=== PATIENT | female | born 1935 | race Caucasian/White ===

== ENCOUNTER → 2020-09-02 | Outpatient (CLI) | payer MEDICARE, OTHER ==
--- NOTE | 2020-09-03 08:28 | RAD ---
Exam performed: 2 views of the chest. Indication: Reason: CHF, DECREASED O2 / Spl. Instructions: / History: Date of Service: 09/02/2020 6:02 PM. Comparison : None available Findings: PA and lateral radiographs of the chest reveal a normal cardiomediastinal contour. The lungs are hype rinflated, however clear. There is a unipolar a in place. No pleural fluid is seen. The visualized o sseous structures are unremarkable. Impression: 1. No acute cardiopulmonary process seen. 2. COPD. Electronically signed by: Trini Munson MD (09/03/2020 8:25 AM) [id number]
== END ==
LOC: RAD 17:53
PROVIDERS: ATTEND Physician Assistant
DX: J44.9 Chronic obstructive pulmonary disease, unspecified (principal)
CPT/HCPCS: 71046